=== PATIENT | male | born 1945 | race Asian ===

== ENCOUNTER 2023-10-01 20:56 | Observation (INO) | payer OTHER ==
[~2023-10-01] VITALS: Ht 172.7 cm; Wt 56.7 kg
[2023-10-01 09:45] VITALS: PULSE 68; O2SAT 99
[2023-10-01 20:56] VITALS: BP 82/54; PULSE 102; RESP 19; TEMP 97.3; O2SAT 97
[2023-10-01] MEDS: NACL 0.9% 1,000 ML IV ONE (21:27)
[2023-10-01 21:31] LABS: HEMATOCRIT 24.8 % (36-52); HEMOGLOBIN 7.9 g/dL (12.0-18.0); MEAN CORPUSCULAR HEMOGLOBIN 22 pg (27-31); MEAN CORPUSCULAR HGB CONC 32 g/dL (33-37); PLATELET COUNT (AUTO) 389 K/uL (140-450); RED BLOOD CELL COUNT(AUTO) 3.59 MIL/uL (4.20-6.10); RED CELL DISTRIBUTION WIDTH 19.5 % (11.6-13.7); WHITE BLOOD COUNT (AUTO) 24.5 K/uL (4.8-10.8)
[2023-10-01 21:45] LABS: ANION GAP 16.3 (8-16); CALCIUM 7.2 mg/dL (8.5-10.1); CARBON DIOXIDE 21.7 mmol/L (21-32); CHLORIDE 104 mmol/L (98-107); CREATININE 1.4 mg/dL (0.6-1.3); GLUCOSE 152 mg/dL (74-106); INR 1.3 (0.8-1.2); PARTIAL THROMBOPLASTIN TIME 35.2 secs (22-35.6); PROTHROMBIN TIME 13.4 secs (10.8-13.4); SODIUM SERUM 138 mmol/L (136-145); UREA NITROGEN, BLOOD 43 mg/dL (7-18)
[2023-10-01 21:51] LABS: ALANINE AMINOTRANSFERASE 25 U/L (12-78); ALBUMIN 1.7 g/dL (3.4-5.0); ALKALINE PHOSPHATASE 174 U/L (50-136); ASPARTATE AMINOTRANSFERASE 23 U/L (15-37); BILIRUBIN,DIRECT 0.4 mg/dL (0.0-0.3); LIPASE 39 U/L (16-77); MAGNESIUM 2.3 mg/dL (1.8-2.4); PHOSPHORUS 3.3 mg/dL (2.5-4.9); TOTAL BILIRUBIN 0.5 mg/dL (0.0-1.0); TOTAL PROTEIN, SERUM 5.5 g/dL (6.4-8.2)
[2023-10-01] MEDS: HUM PROTHROMBIN CPLX(PCC)-LANS 500 UNIT VIAL IV ONE (22:00)
[2023-10-01 22:04] LABS: HYPOCHROMASIA 1+; LYMPHOCYTES % (MANUAL) 7 % (20-46); PLATELET ESTIMATE ADEQUATE
[2023-10-01] MEDS: PANTOPRAZOLE 40 MG INJ VIAL IVP ONE (22:12)
[2023-10-01] MEDS ORDERED: APIX5TAB PO (22:16)
[2023-10-01] MEDS ORDERED: cefTRIAXone 1,000 MG VIAL ONE ×2 (22:57)
[2023-10-02] MEDS ORDERED: ACETAMINOPHEN 325 MG TAB PO PRN (01:00)
[2023-10-02] MEDS ORDERED: HYDROcodone/APAP 5/325 MG 1 TAB TAB PO PRN (01:00)
[2023-10-02] MEDS ORDERED: LORazepam 1 MG TAB PO PRN (01:00)
[2023-10-02] MEDS ORDERED: ZOLPIDEM 5 MG TAB PO PRN (01:00)
[2023-10-02] MEDS: LACTATED RINGERS 1,000 ML IV SCH (01:16)
[2023-10-02] MEDS ORDERED: ONDA-188 SL (01:27)
[2023-10-02] MEDS ORDERED: LORA-476 PO (01:27)
[2023-10-02] MEDS ORDERED: DEXA4TAB5 PO (01:27)
[2023-10-02] MEDS ORDERED: AMIO200T62 PO (01:27)
[2023-10-02] MEDS ORDERED: MSCON30 PO (01:27)
[2023-10-02] MEDS ORDERED: ALBU0.5S1 NEB (01:27)
[2023-10-02] MEDS ORDERED: PROC-87 PO (01:27)
[2023-10-02] MEDS ORDERED: BISA-279 RC (01:27)
[2023-10-02] MEDS ORDERED: HYDR1LIQ6 PO (01:27)
[2023-10-02] MEDS: DOCUSATE SODIUM 100 MG GELCAP PO SCH (09:00)
[2023-10-02 09:02] LABS: BASOPHILS % (AUTO) 0.2 % (0.0-2.0); HEMATOCRIT 23.5 % (36-52); HEMOGLOBIN 7.4 g/dL (12.0-18.0); LYMPHOCYTES # (AUTO) 1.3 K/uL (2.0-11.5); LYMPHOCYTES % (AUTO) 7.8 % (20.5-51.1); MEAN CORPUSCULAR HEMOGLOBIN 22 pg (27-31); MEAN CORPUSCULAR HGB CONC 32 g/dL (33-37); MEAN CORPUSCULAR VOLUME 69.6 fL (80-94); MONOCYTES # (AUTO) 1.4 K/uL (0.8-1.0); MONOCYTES % (AUTO) 8.2 % (1.7-9.3); NEUTROPHILS # (AUTO) 14.1 K/uL (1.8-7.7); NEUTROPHILS % (AUTO) 83.8 % (42.2-75.2); PLATELET COUNT (AUTO) 343 K/uL (140-450); RED BLOOD CELL COUNT(AUTO) 3.37 MIL/uL (4.20-6.10); RED CELL DISTRIBUTION WIDTH 18.7 % (11.6-13.7); WHITE BLOOD COUNT (AUTO) 16.8 K/uL (4.8-10.8)
[2023-10-02 09:21] LABS: ALANINE AMINOTRANSFERASE 22 U/L (12-78); ALBUMIN 1.7 g/dL (3.4-5.0); ALKALINE PHOSPHATASE 165 U/L (50-136); ANION GAP 12.5 (8-16); ASPARTATE AMINOTRANSFERASE 23 U/L (15-37); CARBON DIOXIDE 24.2 mmol/L (21-32); CHLORIDE 107 mmol/L (98-107); CREATININE 0.9 mg/dL (0.6-1.3); GLUCOSE 130 mg/dL (74-106); MAGNESIUM 2.3 mg/dL (1.8-2.4); PHOSPHORUS 2.4 mg/dL (2.5-4.9); POTASSIUM 3.7 mmol/L (3.5-5.1); SODIUM SERUM 140 mmol/L (136-145); TOTAL BILIRUBIN 0.5 mg/dL (0.0-1.0); TOTAL PROTEIN, SERUM 5.4 g/dL (6.4-8.2); UREA NITROGEN, BLOOD 40 mg/dL (7-18)
[2023-10-02 11:37] VITALS: O2SAT 95
[2023-10-02 12:00] VITALS: BP 98/59; PULSE 95; PULSE 99; RESP 18; TEMP 96.9; O2SAT 100
[2023-10-02 16:00] VITALS: BP 96/51; PULSE 90; PULSE 91; RESP 18; TEMP 96.9; O2SAT 100
[2023-10-02] MEDS: MORPHINE SULFATE 4 MG/ML SYR IVP PRN (17:12)
[2023-10-02 20:00] VITALS: BP 99/43; PULSE 87; RESP 17; TEMP 97; O2SAT 100
[2023-10-02 20:02] VITALS: PULSE 88
[2023-10-02] MEDS: ONDANSETRON 4 MG/2 ML VIAL IVP PRN (22:00)
[2023-10-03 00:05] VITALS: PULSE 92
[2023-10-03 04:00] VITALS: BP 96/51; PULSE 91; PULSE 92; RESP 18; TEMP 96.9; O2SAT 100
[2023-10-03 08:00] VITALS: BP 123/52; PULSE 73; PULSE 86; RESP 18; RESP 19; TEMP 97.1; O2SAT 100
[2023-10-03 08:10] LABS: BASOPHILS % (AUTO) 0.2 % (0.0-2.0); HEMOGLOBIN 7.1 g/dL (12.0-18.0); LYMPHOCYTES # (AUTO) 0.9 K/uL (2.0-11.5); LYMPHOCYTES % (AUTO) 6.8 % (20.5-51.1); MEAN CORPUSCULAR HEMOGLOBIN 22 pg (27-31); MEAN CORPUSCULAR HGB CONC 31 g/dL (33-37); MEAN CORPUSCULAR VOLUME 70.3 fL (80-94); MONOCYTES # (AUTO) 1.2 K/uL (0.8-1.0); MONOCYTES % (AUTO) 8.5 % (1.7-9.3); NEUTROPHILS # (AUTO) 11.6 K/uL (1.8-7.7); NEUTROPHILS % (AUTO) 84.5 % (42.2-75.2); PLATELET COUNT (AUTO) 308 K/uL (140-450); RED BLOOD CELL COUNT(AUTO) 3.28 MIL/uL (4.20-6.10); RED CELL DISTRIBUTION WIDTH 21.3 % (11.6-13.7); WHITE BLOOD COUNT (AUTO) 13.8 K/uL (4.8-10.8)
[2023-10-03 08:27] LABS: ALANINE AMINOTRANSFERASE 22 U/L (12-78); ALBUMIN 1.7 g/dL (3.4-5.0); ALKALINE PHOSPHATASE 154 U/L (50-136); ANION GAP 12.4 (8-16); ASPARTATE AMINOTRANSFERASE 33 U/L (15-37); CALCIUM 7.4 mg/dL (8.5-10.1); CARBON DIOXIDE 25.5 mmol/L (21-32); CHLORIDE 110 mmol/L (98-107); CREATININE 0.6 mg/dL (0.6-1.3); GLUCOSE 109 mg/dL (74-106); PHOSPHORUS 1.7 mg/dL (2.5-4.9); POTASSIUM 3.9 mmol/L (3.5-5.1); SODIUM SERUM 144 mmol/L (136-145); TOTAL BILIRUBIN 0.6 mg/dL (0.0-1.0); TOTAL PROTEIN, SERUM 5.4 g/dL (6.4-8.2); UREA NITROGEN, BLOOD 18 mg/dL (7-18)
[2023-10-03 12:00] VITALS: BP 117/55; PULSE 86; PULSE 92; RESP 18; TEMP 97.8; O2SAT 100
== END 2023-10-03 16:00 | disposition left against medical advice (07) ==
LOC: MED 20:56 → MTU 10-02 00:56 → MMU 10-02 06:54
PROVIDERS: ADMIT Hospitalist; ATTEND Hospitalist
DX: K92.2 Gastrointestinal hemorrhage, unspecified (principal); D50.0 Iron deficiency anemia secondary to blood loss (chronic); I10 Essential (primary) hypertension; E78.5 Hyperlipidemia, unspecified; D72.829 Elevated white blood cell count, unspecified; N17.9 Acute kidney failure, unspecified; Z79.01 Long term (current) use of anticoagulants; Z85.038 Personal history of other malignant neoplasm of large intestine; Z79.899 Other long term (current) drug therapy
CPT/HCPCS: 36415; 71045; 80048; 80053; 80076; 83605; 83690; 83735; 84100; 84484; 85025; 85610; 85730; 86886; 86900; 86901; 87040; 87081; 87186; 93005; 94760; 96361; 96365; 96375; 96376; 99291; C9113; C9159; G0378; J0696; J2270; J2405